=== PATIENT | female | born 1990 | race African-American/Black ===

== ENCOUNTER 2021-05-06 14:42 | Emergency (ER) | payer MEDICAID ==
[~2021-05-06] VITALS: Ht 152.4 cm; Wt 41.0 kg
[2021-05-06 18:41] VITALS: BP 125/86
[2021-05-06] MEDS ORDERED: DIPH25CA83 MT (20:13)
[2021-05-06] MEDS ORDERED: P20 MT (20:13)
[2021-05-06] MEDS ORDERED: FAMO-135 MT (20:13)
== END 2021-05-06 20:24 | disposition home or self-care (01) ==
LOC: ER 14:42
DX: R21 Rash and other nonspecific skin eruption (principal); R03.0 Elevated blood-pressure reading, without diagnosis of hypertension
CPT/HCPCS: 81025; 99282; 99283